=== PATIENT | female | born 1960 | race Caucasian/White ===

== ENCOUNTER 2017-09-24 09:24 | Day surgery (SDC) | payer OTHER ==
[2017-09-24] MEDS ORDERED: D5 LR 1000 ML 1,000 ML IV ONE (09:34)
[2017-09-24] MEDS ORDERED: DIPRIVAN VIAL 20 ML ONE (10:52)
[2017-09-24 11:13] VITALS: BP 112/87
== END 2017-09-24 11:18 | disposition home or self-care (01) ==
LOC: SURG1 09:24
PROVIDERS: ATTEND Internal Medicine Gastroenterology
PROC: 0DB68ZX Excision of Stomach, Via Natural or Artificial Opening Endoscopic, Diagnostic (ICD-10-PCS; principal; 2017-09-24 12:00)
PROC: 0DB88ZX Excision of Small Intestine, Via Natural or Artificial Opening Endoscopic, Diagnostic (ICD-10-PCS; principal; 2017-09-24 12:00)
PROC: 0DJ08ZZ Inspection of Upper Intestinal Tract, Via Natural or Artificial Opening Endoscopic (ICD-10-PCS; principal; 2017-09-24 12:00)
DX: R10.13 Epigastric pain (principal); R11.2 Nausea with vomiting, unspecified; K25.9 Gastric ulcer, unspecified as acute or chronic, without hemorrhage or perforation; K20.8 Other esophagitis; K29.60 Other gastritis without bleeding
CPT/HCPCS: A4217; J3490; J7120